=== PATIENT | female | born 1950 | race Caucasian/White ===

== ENCOUNTER 2016-12-24 18:55 | Emergency (ER) | payer BC, SELFPAY ==
[~2016-12-24] VITALS: Ht 160 cm; Wt 70.5 kg
[2016-12-24] MEDS ORDERED: CALCTAB68 PO (19:27)
[2016-12-24] MEDS ORDERED: PREMARIN (19:27)
[2016-12-24] MEDS ORDERED: RABEPRAZOLE PO (19:27)
[2016-12-24] MEDS ORDERED: STOO100C PO (19:27)
[2016-12-24] MEDS ORDERED: NS 500 ML IV ONE (20:15)
[2016-12-24] MEDS ORDERED: MORPHINE 4 MG/ML 1ML SYRINGE IV ONE (20:15)
[2016-12-24 20:47] LABS: BASO # 0.1 K/mm3 (0.0-0.2); BASO % 0.7 % (0.0-1.0); EOS # 0.1 K/mm3 (0.0-0.50); EOS % 1.1 % (0.0-3.0); LARGE UNSTAINED CELL # 0.1 K/mm3 (0.0-0.4); LYMPH # 1.9 K/mm3 (1.5-4.5); LYMPH % 21.8 % (24.0-44.0); MEAN CORPUSCULAR HGB CONC 33.3 g/dl (32.0-36.5); MONO # 0.3 K/mm3 (0.0-0.8); MONO % 3.3 % (0.0-5.0); NEUTROPHILS % 72.1 % (36.0-66.0); PLATELET COUNT, AUTOMATED 317 k/mm3 (150-450); RED CELL DISTRIBUTION WIDTH 13.2 % (11.5-14.5); WHITE BLOOD COUNT 8.4 K/mm3 (4.0-10.0)
[2016-12-24 20:53] LABS: INR 0.96
[2016-12-24 21:03] LABS: ANION GAP 6 MEQ/L (8-16); BLOOD UREA NITROGEN 12 MG/DL (7-18); CALCIUM LEVEL 9.4 MG/DL (8.8-10.2); CARBON DIOXIDE LEVEL 28 MEQ/L (21-32); CHLORIDE LEVEL 107 MEQ/L (98-107); CREATININE FOR GFR 0.84 MG/DL (0.55-1.02); GLOMERULAR FILTRATION RATE > 60.0 (>45); GLUCOSE, FASTING 100 MG/DL (80-110); SODIUM LEVEL 141 MEQ/L (136-145)
[2016-12-24] MEDS ORDERED: NORCO 5/325MG TABLET (BULK FOR ED) PO ONE (21:45)
[2016-12-24 22:12] VITALS: BP 116/71
--- NOTE | 2016-12-25 05:00 | ER ---
DATE OF CONSULTATION: 12/24/2016 CHIEF COMPLAINT: Right distal radius fracture. HISTORY OF PRESENT ILLNESS: Deb Clark is a 66-year-old right-hand dominant female who sustained a mechanical fall onto an outstretched right upper extremity while carrying a canoe resulting in immediate pain and deformity about the right wrist. She initially presented to [facility] in [place] where there was no orthopedic surgical care available. The patient was transferred to [facility] Emergency Room for definitive orthopedic management. Patient has a pertinent medical history for osteopenia, was previously on Actonel, currently taking calcium/vitamin D supplementation. She localizes pain to the right wrist. She denies any numbness, tingling or burning sensations distally about her right upper extremity and has no other complaints. PAST MEDICAL HISTORY: Notable for osteopenia, gastroesophageal reflux disease (GERD) and frequent urinary tract infections (UTIs). ALLERGIES: NEOMYCIN and ACTONEL. MEDICATIONS: - Aciphex - calcium/vitamin D supplementation PAST SURGICAL HISTORY: Bilateral tubal ligation. FAMILY HISTORY: Noncontributory. SOCIAL HISTORY: The patient is a retired female. She does not smoke, drink, use illicit drugs. She lives with her about an hour outside of [place]. REVIEW OF SYSTEMS: 14-point review of systems was remarkable only for osteopenia per history of present illness (HPI). Her last density screening was 5 years ago. The remainder of the review of systems is also notable for frequent urinary tract infections, otherwise unremarkable. PHYSICAL EXAMINATION: VITAL SIGNS: Reviewed and normal. GENERAL: This is a well-nourished female who appears her stated age in no acute distress. NEUROLOGIC: She is awake, alert, and oriented to person, place, and time. She has intact sensory and motor function in the right upper extremity, radial, median and ulnar anterior interosseus nerve (AIN), posterior interosseus nerve (PIN) distributions. CARDIOVASCULAR: She has a 2+ radial pulse and brisk capillary refill to all tips of the right upper extremity. MUSCULOSKELETAL: Focused physical exam of the right wrist demonstrates no open wounds or abrasions. She does have a 3 cm curvilinear scar over the volar distal forearm from an accident sustained when she was 12 years old, healed and uncomplicated. There is obvious visible deformity about the right wrist. She has focal tenderness about the distal radius. She has no pain with passive stretch of the fingers and no elbow or shoulder pain. RADIOGRAPHS: Plain radiographs of the right wrist taken at [facility] were reviewed demonstrating the volarly displaced right distal radius fracture with significant shortening and some volar comminution. ASSESSMENT: This is a 66-year-old female with a right distal radius volar shear fracture. PLAN: I discussed with the patient risks, benefits, indications and alternatives of a closed reduction and casting versus open reduction internal fixation. Given this is her dominant hand and it is a more unstable fracture pattern given its volar displacement, I recommend open reduction internal fixation given the unlikely probability that a reduction would be maintained by closed means. Patient expressed understanding and would like to proceed with open reduction internal fixation. The patient was placed into a well-padded volar wrist splint. She will present tomorrow for outpatient open reduction internal fixation. Patient was counseled on her return precautions and will be nothing by mouth after midnight. She expressed understanding and agreed with the plan. All questions were answered. I counseled the patient that I will be the operating surgeon, but her followup care will be conducted by [facility]. The patient expressed understanding of this arrangement and agreed with the assessment and plan. OSMAN
[2016-12-25] MEDS ORDERED: ACIP1TAB PO (11:52)
[2016-12-25] MEDS ORDERED: NORC1TAB4 PO (19:03)
== END 2016-12-24 22:13 | disposition home or self-care (01) ==
LOC: M ED 18:55
DX: S52.511A Displaced fracture of right radial styloid process, initial encounter for closed fracture (principal); W01.198A Fall on same level from slipping, tripping and stumbling with subsequent striking against other object, initial encounter; Y92.099 Unspecified place in other non-institutional residence as the place of occurrence of the external cause; Y93.01 Activity, walking, marching and hiking; Y99.9 Unspecified external cause status

== ENCOUNTER → 2016-12-25 | Day surgery (SDC) | payer BC, SELFPAY ==
[~2016-12-25] MED LIST: ACIP1TAB PO; CALCTAB68 PO; LIDOCAINE 2% INJ 100 MG/5 ML SDV (FOR ANES.) As Ordered ONE; LR 1,000 ML IV SCH; METOCLOPRAMIDE INJ 10MG/2ML VIAL (J2765) As Ordered ONE; METOCLOPRAMIDE INJ 10MG/2ML VIAL (J2765) IV PRN; MIDAZOLAM INJ 2 MG/2 ML VIAL (J2250) As Ordered ONE; NORC1TAB4 PO; NORCO, ANEXSIA 5/325MG TABLET (HYDROcodone/ACETAMINOPHEN) PO PRN; ONDANSETRON 4MG/2ML VIAL (J2405) As Ordered ONE; ONDANSETRON 4MG/2ML VIAL (J2405) IV PRN; PERCOCET 5MG/325MG TAB PO PRN; PREMARIN; PROPOFOL 200 MG/20 ML VIAL As Ordered ONE; RABEPRAZOLE PO; STOO100C PO; ceFAZolin 1GM INJ (J0690) As Ordered ONE; dexameTHASONE 4 MG/ML 1ML VIAL (J1100) As Ordered ONE; fentaNYL 100 MCG/2 ML INJECTION (J3010) IV PRN; fentaNYL 250 MCG/5 ML INJECTION (J3010) As Ordered ONE
--- NOTE | 2016-12-25 14:17 | REP ---
REASON: Followup radial fracture. COMPARISON: None. There is an internal fixation plate and seven affixing screws seen affixing a distal radial fracture. There is no evidence of any of the affixing screws breaching the articular surface. The examination was obtained using a portable C-arm device in my [place]. The quality is limited compared to conventional radiography. There is an ulnar styloid fracture noted. 40 seconds of fluoroscopy time was provided for the exam. Signed by Eliseo Quinn DO 12/25/2016 03:47 P
--- NOTE | 2016-12-25 15:08 | REP ---
RIGHT WRIST: Portable AP and lateral views of the right wrist are performed. Metallic plate and screws are seen in the distal radius. Osseous structures are well aligned. Signed by Kaiden Thomas MD 12/25/2016 05:09 P
[2016-12-25 17:25] VITALS: BP 107/66
--- NOTE | 2016-12-26 09:28 | RO ---
DATE OF PROCEDURE: 12/25/2016 PREPROCEDURE DIAGNOSIS: Right distal radius fracture. POSTPROCEDURE DIAGNOSIS: Right distal radius fracture. PROCEDURE: Open reduction internal fixation right distal radius. SURGEON: Dr. Julio César Joshi. RN CARDIAC REHAB: TOREY Pagan ANESTHESIA: LMA. IMPLANTS USED: Synthes three hole 2.4/2.7 variable angle distal radius locking plate. COMPLICATIONS: None. ANTIBIOTICS: 2 grams Ancef given within 1 hour of incision. TOTAL TOURNIQUET TIME: 51 minutes. 250 mmHg right brachium. COMPLICATIONS: None. MATERIAL SENT TO LAB: None. ESTIMATED BLOOD LOSS: 10 mL. INDICATION FOR PROCEDURE: Dbe Clark is a 66-year-old right hand dominant female who sustained a fall with outstretched right upper extremity resulting in a volarly displaced right distal radius fracture. Given that it was her dominant hand, the unstable nature of the fracture pattern, I counseled the patient on the risks, benefits, indications and alternatives of closed reduction attempt versus open reduction internal fixation. After discussion, patient elected to proceed with open reduction internal fixation right distal radius fracture. I counseled the patient that I will be her operating surgeon. Her followup care will be conducted by [facility]. Patient expressed understanding for this arrangement and agreed and provided informed consent for right distal radius open reduction internal fixation. INTRAOPERATIVE FINDINGS: There was volarly displaced radius fracture with small ulnar fragment that was stabilized after plate placement. DESCRIPTION OF PROCEDURE: The patient was positively identified in the preop holding area. The surgical site was marked. She was brought to the operating room and was placed under LMA anesthesia. SCDs were placed on the lower extremities for DVT prophylaxis. She was prepped and draped in the usual sterile fashion. Final time out was performed. I made a 5 cm volar based incision directly over the flexor carpi radialis (FCR) tendon. Her previous transverse scar was crossed at 45 degree angles. I dissected skin and subcutaneous tissue, identified the FCR tendon sheath, dissected through the FCR tendon sheath, identified the palmar cutaneous branch of the median nerve. The FCR tendon was retracted ulnarly to protect the palmar cutaneous branch of the medial nerve. I then dissected through the floor of the FCR tendon sheath, identified the FPL which was retracted radially, identified the pronator quadratus which was dissected sharply off the distal radius exposing the fracture. I then irrigated the fracture site and evacuated any residual fracture hematoma and an open reduction was obtained using traction and dorsal based force. In order to obtain anatomic reduction, congregational of length and alignment, radial height, inclination and tilt of the right distal radius, I applied a plate to use as a reduction tool with a screw centered in the oblong hole. A 2.7 cm cortex screw was placed in the center of the hole for a fine tune adjustment. I used C-arm fluoroscopy to confirm anatomic reduction of the fracture and adequate placement of the plate. Once this was confirmed, I placed four distal row locking screws and confirmed with fluoroscopy that there was no intra-articular screw penetration. After placement of these screws, I then placed two additional proximal cortex screws in the shaft. I obtained final fluoroscopic images to confirm anatomic reduction, maintenance of radial height, tilt and inclination and no intra-articular penetration of screws. At this point, the wound was thoroughly irrigated with normal saline then closed in layers with #2-0 Vicryl for subcutaneous layer and running #3-0 Nylon for the skin. Sterile dressings were applied in addition to a volar splint. The tourniquet was let down at 51 minutes. This ended the procedure. I was present and scrubbed in for all portions of the case. POSTOPERATIVE PLAN: Patient will be non-weight bearing to the right upper extremity. She will present to clinic in 10-14 days for wound check and suture removal. She will be discharged to home this afternoon. OSMAN
== END | disposition home or self-care (01) ==
LOC: M SDC 11:04
PROVIDERS: ATTEND Orthopaedic Surgery
DX: S52.501A Unspecified fracture of the lower end of right radius, initial encounter for closed fracture (principal); W19.XXXA Unspecified fall, initial encounter; Y93.89 Activity, other specified; Y92.89 Other specified places as the place of occurrence of the external cause; Y99.8 Other external cause status; K21.9 Gastro-esophageal reflux disease without esophagitis; M85.80 Other specified disorders of bone density and structure, unspecified site; Z88.1 Allergy status to other antibiotic agents; Z88.8 Allergy status to other drugs, medicaments and biological substances; Z87.440 Personal history of urinary (tract) infections; Z98.51 Tubal ligation status
CPT/HCPCS: 25607; 73090; 73100; C1776; J0690; J1100; J2250; J2405; J2765; J3010